=== PATIENT | female | born 1990 | race American Indian/Alaskan Native ===

== ENCOUNTER 2021-06-02 11:22 | Emergency (ER) | payer MEDICAID ==
[2021-06-02 11:26] VITALS: BP 148/99
--- NOTE | 2021-06-02 12:10 | Emergency Department Report ---
Minor Respiratory - HPI Chief Complaint: Medical Clearance Stated Complaint: flu like symptoms Time Seen by Provider: 06/02/21 11:52 Duration: 1 week Minor Respiratory: Yes Able to Tolerate Fluids, Yes Cough (Slight cough), Yes Sick Contacts, Yes Chest Pain, No Rhinorrhea, No Sore Throat, No Shortness of Breath, No Fever Other History: 31-year-old -[place] female who tested positive for Covid on Sunday presents to the emergency room for 1 week history of body aches chest pain slight cough chest pain with deep breath chills. She is not vaccinated for Covid. States has had diarrhea for 3 days. She has been fatigue. She has been drinking tea and Advil. She denies any past medical history has no known drug allergies and currently takes no meds on a daily basis. She does have a primary care provider Dr. Corby Bello but has not seen them in a year. Oxygen level tested by this provider is 100% on room air heart rate 68. ED Review of Systems ROS: Stated complaint: flu like symptoms Other details as noted in HPI Comment: All other systems reviewed and negative ED Past Medical Hx - Medications Home Medications: Home Medications Medication Instructions Recorded Confirmed Last Taken Type Azithromycin [Zithromax TAB] 250 mg PO QDAY 5 Days #6 tablet 06/02/21 Unknown Rx Ibuprofen [Motrin 800 MG tab] 800 mg PO Q8HR PRN #30 tablet 06/02/21 Unknown Rx predniSONE [Deltasone] 20 mg PO QDAY #5 tab 06/02/21 Unknown Rx Minor Respiratory Exam - Exam General: Vital signs noted. No distress. Alert and acting appropriately. Neurologic: Alert and oriented, no deficits. Musculoskeletal: Unremarkable. ED Course Vital Signs 06/02/21 11:24 Temperature 98.6 F Pulse Rate 78 Respiratory 16 Rate Blood Pressure 148/99 [Left] O2 Sat by Pulse 100 Oximetry ED Medical Decision Making - Medical Decision Making 31-year-old -[place] female who tested positive for Covid on Sunday presents to the emergency room for 1 week history of body aches chest pain slight cough chest pain with deep breath chills. She is not vaccinated for Covid. States has had diarrhea for 3 days. She has been fatigue. She has been drinking tea and Advil. She denies any past medical history has no known drug allergies and currently takes no meds on a daily basis. She does have a primary care provider Dr. Corby Bello but has not seen them in a year. Oxygen level tested by this provider is 100% on room air heart rate 68. We will place patient on antibiotics as is been over a week with symptoms and tested positive for Covid. Discussed with patient she needs to increase her fluid intake advance her diet as tolerated. Critical care attestation.: If time is entered above; I have spent that time in minutes in the direct care of this critically ill patient, excluding procedure time. ED Disposition Clinical Impression: Upper respiratory infection, acute, COVID Disposition: 01 HOME / SELF CARE / HOMELESS Is pt being admited?: No Does the pt Need Aspirin: No Condition: Stable Instructions: Upper Respiratory Infection, Adult, Prevent the Spread of COVID- 19 if You Are Sick - [facility] Additional Instructions: Your symptoms appear most consistent with a nonspecific viral syndrome. However, given this current pandemic, COVID-19 is in the differential of possibilities. , I do recommend repeat outpatient Covid 19 testing. In the meantime, isolate/quarantine yourself and stay away from anyone who is elderly, immunocompromised or chronically ill. You can use ibuprofen every 6-8 hours and Tylenol every 4-8 hours, using the dosing on the back of the bottle, as needed for any fever or body aches. Return to the emergency department with any worsening of your symptoms, development of chest pain or shortness of breath, or with any acute distress. Complete antibiotics complete prednisone ibuprofen as needed increase your fluids. Follow-up with your primary care provider. Prescriptions: predniSONE [Deltasone] 20 mg PO QDAY #5 tab Ibuprofen [Motrin 800 MG tab] 800 mg PO Q8HR PRN #30 tablet PRN Reason: Pain , Severe (7-10) Azithromycin [Zithromax TAB] 250 mg PO QDAY 5 Days #6 tablet Referrals: NATTY BELLO MD [Staff Physician] - 3-5 Days Forms: Work/School Release Form(ED) Time of Disposition: 12:11
== END 2021-06-02 12:32 | disposition home or self-care (01) ==
LOC: ED 11:22
DX: U07.1 COVID-19 (principal); J06.9 Acute upper respiratory infection, unspecified
CPT/HCPCS: 99283